=== PATIENT | female | born 1965 | race Caucasian/White ===

== ENCOUNTER 2025-03-19 12:45 | Emergency (ER) | payer OTHER ==
[~2025-03-19] VITALS: Ht 162.6 cm; Wt 68.4 kg
[2025-03-19 12:56] VITALS: BP 134/81; PULSE 94; RESP 16; TEMP 97.5; O2SAT 99
[2025-03-19] MEDS: LIDOcaine 1% W/epiNEPHrine 1:100,000 20ml vial SQ ONE (14:54)
--- NOTE | 2025-03-19 15:26 | Physician Documentation ---
History of Present Illness ~ Chief Complaint: Facial Swelling Stated Complaint: FACIAL SWELLING Time Seen by MD: 14:15 HPI 59-year-old female presents to the ED with two days of increased cheek swelling and pain. States she ate his salad two days ago and felt like maybe she got some food stuck in her teeth and then developed an infection in her upper left incisor region pain radiates up into the cheek. Denies any fevers Day of Onset: Mar 19, 2025 Medication Reconciliation Allergies: Coded Allergies: beeswax (Verified Allergy, Unknown, 03/19/25) Scheduled Amoxicillin Trihydrate* (Amoxicillin*), 1 CAP PO Q8H Scheduled PRN Hydrocodone Bit/Acetaminophen 5/325 MG (Ganado 5/325 MG), 1 TAB PO Q6H PRN for pain Review of Systems All Other Systems at this time: Reviewed and Negative ROS As stated above in the HPI, otherwise all systems are reviewed and negative. Physical Exam Vital Signs: Temperature: 97.5, Source: Temporal, Heart Rate: 94, Respiratory Rate: 16, BP: 134/81, Pulse Oximetry: 99, Weight: 68.400 Oxygen Flow Rate: 0 Physical Exam General: Alert, no apparent distress. HEENT: PERRL, EOMI, no injection, moist mucous membranes. Facial swelling left cheek. Notable erythema just superior to the left upper incisor. Neck: Full range of motion. Respiratory: Lungs clear, no respiratory distress. Cardiovascular: Regular rate and rhythm, no murmurs. Gastrointestinal: Soft, nontender, nondistended. Bowels sounds present. Neurologic: Oriented x4. Psychiatric: Normal mood and affect. Skin: Normal color, warm and dry. No edema, no ecchymosis. Procedures I&D Procedure : Anesthesia: Lidocaine w/ Epi Blade Size: 11 Incision: blood drained Tolerated Procedure Well?: yes, no complications Procedure Note No purulent discharge where the suspected abscess was located. Dr. Mendiola evaluated and acknowledged that no further treatment needs to occur at this time. Though there was point tenderness there was not a large amount of fluctuance Progress Results/Orders Results/Orders Orders - TEN GILLESPIE NP Laceration/I&D Tray Set Up (03/19/25 ) General Nursing Order (03/19/25 ) Completed Orders - TEN GILLESPIE NP Lidocaine 1% W/Epi 1:100,000 (Xylocaine (03/19/25 14:35) Hydrocodone/Apap 10/325 (Ganado 10/325mg (03/19/25 15:30) Amoxicillin Capsule (Trimox Capsule) (03/19/25 15:30) Vital Signs 03/19/25 12:56 Temp 97.5 Pulse 94 Resp 16 B/P (MAP) 134/81 Pulse Ox 99 O2 Flow Rate 0 Medical Decision Making Findings Patient tolerated procedure well although she did present quite anxious. I was unable to drain the suspected abscess however a large amount of fluctuance was not notable. At this time I feel it is prudent to treat her for pain and start her on oral antibiotics Departure Disposition: HOME / SELF CARE / HOMELESS Impression: Primary Impression: Dental abscess Discharge Instructions: Abscess, Dental Referrals: NO PRIMARY CARE PROVIDER (PCP) Prescriptions Amoxicillin Trihydrate* (Amoxicillin*) 500 Mg Capsule 1 CAP PO Q8H for 10 Days, #30 CAP Prov: TEN GILLESPIE NP 03/19/25 Hydrocodone Bit/Acetaminophen 5/325 MG (Ganado 5/325 MG) 5 Mg/325 Mg Tablet 1 TAB PO Q6H PRN for pain, #14 TAB Prov: TEN GILLESPIE NP 03/19/25 Education Educated: Patient Signature Scribe Signature: u Attestation: Scribed for Ten Gillespie Bliss [employer] Operator by Ten Phillips NP . 03/19/25 23:49 TEN GILLESPIE NP Mar 19, 2025 15:26
[2025-03-19] MEDS ORDERED: AMOX500C2 PO (15:27)
[2025-03-19] MEDS ORDERED: HYDR-3965 PO (15:27)
[2025-03-19] MEDS ORDERED: HYDROcodone/acetaminophen 10/325mg tab PO ONE (15:30)
== END 2025-03-19 15:44 | disposition home or self-care (01) ==
LOC: ER 12:47
DX: K04.7 Periapical abscess without sinus (principal); Z91.030 Bee allergy status
CPT/HCPCS: 41800; 99284; A6449